=== PATIENT | male | born 1995 | race Caucasian/White ===

== ENCOUNTER 2016-05-06 10:16 | Emergency (ER) | payer OTHER ==
[~2016-05-06] VITALS: Ht 185.4 cm; Wt 82.0 kg
[~2016-05-06 10:16] MED LIST: ACET-1256 PO; NYQUIL PO
[2016-05-06 10:24] VITALS: TEMP 36.8; Ht 185.4 cm; Wt 82.0 kg
[2016-05-06] MEDS ORDERED: IBUP-1050 PO (10:43)
--- NOTE | 2016-05-06 10:43 | DIAGNOSTIC IMAGING REPORT ---
LEFT ANKLE MIN 3 VIEWS ROUTINE CLINICAL HISTORY: Left ankle pain COMPARISON: None. DISCUSSION: There is an oblique fracture of the distal fibula demonstrating 2 mm of maximal displacement. No tibial fractures are visualized. The ankle mortise appears intact. There is lateral soft tissue swelling. IMPRESSION: Oblique fracture of distal fibula demonstrating 2 mm of maximal displacement. Electronically signed by: Oli Palacios M.D. 05/06/2016 10:41 AM Dictated Date/Time: 05/06/2016 10:40 AM
[2016-05-06] MEDS ORDERED: HYDR-5688 PO (11:17)
[2016-05-06 11:22] VITALS: BP 165/92; PULSE 89; O2SAT 96
--- NOTE | 2016-05-07 10:39 | EMERGENCY ROOM VISIT NOTE ---
ED Visit Note First contact with patient: 10:48 CHIEF COMPLAINT: Left ankle pain. HISTORY OF PRESENT ILLNESS: Mr. Neff is a 20-year old male who is brought via wheelchair into the ED complaining of left lateral ankle pain. He reports approximately 10 hours ago he he slipped and fell on ice after drinking alcohol. He reports at the time of the injury he did not strike his head or have loss of consciousness and since the injury he has had no signs of head injury. He is currently complaining of achy pain over the lateral aspect of the left ankle that becomes sharp with weightbearing and ambulation. At rest he rates his discomfort 4/10 and with ambulation and weightbearing he rates his pain 7/ 10. The pain is constant. Other aggravating factors are palpation, inversion and plantarflexion. He does report he took 800 mg of ibuprofen before arrival at the hospital and had mild relief of his discomfort. He denies any associated symptoms including hip pain, knee pain and leg foot weakness/numbness /tingling. Additionally he denies any previous significant injuries or surgeries to the left ankle. REVIEW OF SYSTEMS: As noted above in History of Present Illness. PAST MEDICAL HISTORY: Status post teeth extraction. CURRENT MEDICATIONS: Patient denies. ALLERGIES TO MEDICATIONS: Patient denies. SOCIAL HISTORY: Patient is currently University student; he feels safe in his home environment; he denies tobacco use; he admits to alcohol use PHYSICAL EXAM: Vital Signs: Date Time Temp Pulse Resp B/P Pulse Ox O2 Delivery O2 Flow Rate FiO2 05/06/16 11:22 89 18 165/92 96 Room Air 05/06/16 10:24 36.8 93 18 111/70 95 Room Air General: 20 year old male in mild distress due to pain, nontoxic-appearing, afebrile and hemodynamically stable. Neurological: Awake, alert, oriented to person place and time. Answering questions appropriately and following commands. Skin: Warm dry and pink. No soft tissue injuries. Left Lower Extremity: No gross lupillo deformities. No tenderness in the hip or knee. Distal fibula and lateral malleolus with no gross bony deformities or palpable crepitus. There is moderate swelling and early ecchymosis. Decreased range of motion in all movements due to pain. Difficult to assess ligamentous laxity due to pain and swelling. He was able to wiggles toes. Throughout the foot the skin is pink and warm with brisk capillary refill. Able to distinguish light sensations through all dermatomes of the foot. ED COURSE: Patient is assessed as noted above. Left Ankle X-Rays: Was read by myself and the radiologist shows a minimally distracted distal fibula fracture. Patient is given ice for pain, swelling and comfort; patient was offered pain medications and refused. Patient is placed in a patient was placed in Ortho-Glass sterile splint and is instructed on crutch use. Patient is educated about his condition and instructed on his treatment plan; he verbalizes understanding and agreement with the our plan. CLINICAL IMPRESSION: Fracture of the distal left fibula. DISPOSITION: Patient is discharged to home in stable condition; prior to departure he was reassessed and subjectively reported he was feeling the same. PLAN: Comfort measures were discussed with the patient. Narcotics were prescribed and appropriate precautions were discussed with the patient. Patient encouraged to follow-up with an [place] [facility] for specialty care and treatment. Patient encouraged to return ED as needed for increasing pain, increasing swelling, foot weakness/numbness/tingling or any new/concerning symptoms.
== END 2016-05-06 11:31 | disposition home or self-care (01) ==
LOC: C.EDB 10:17 → C.EDD 11:31
DX: S82.402A Unspecified fracture of shaft of left fibula, initial encounter for closed fracture (principal); W00.0XXA Fall on same level due to ice and snow, initial encounter